=== PATIENT | male | born 1975 | race African-American/Black ===

== ENCOUNTER 2021-12-19 18:18 | Emergency (ER) | payer SELFPAY ==
[~2021-12-19] VITALS: Ht 167.6 cm; Wt 67.0 kg
[2021-12-19 18:44] LABS: BASOPHILS % (AUTO) 2.2 % (0.0-2.0); EOSINOPHILS % (AUTO) 2.9 % (1.0-6.0); HEMATOCRIT 37.6 % (41-53); HEMOGLOBIN 12.7 g/dL (13.5-17.5); LYMPHOCYTES # (AUTO) 2.6 K/uL (1.0-4.8); LYMPHOCYTES % (AUTO) 32.6 % (22.0-44.0); MEAN CORPUSCULAR HEMOGLOBIN 28.4 pg (26.0-34.0); MEAN CORPUSCULAR HGB CONC 33.7 G/dL (31.0-37.0); MEAN CORPUSCULAR VOLUME 84 fL (80-100); MONOCYTES # (AUTO) 0.6 K/uL (0.1-1.0); MONOCYTES % (AUTO) 7.5 % (2.0-9.0); NEUTROPHILS # (AUTO) 4.3 K/uL (1.8-7.7); NEUTROPHILS % (AUTO) 54.8 % (40.0-70.0); PLATELET COUNT (AUTO) 194 K/uL (150-450); RED BLOOD CELL COUNT(AUTO) 4.47 MIL/uL (4.50-5.90); RED CELL DISTRIBUTION WIDTH 22.1 % (11.5-14.5)
[2021-12-19] MEDS ORDERED: IOHEXOL 350 MG/ML 100 ML VIAL ONE (18:44)
[2021-12-19] MEDS ORDERED: SODIUM CHLORIDE 0.9% 100 ML ONE (18:44)
[2021-12-19] MEDS ORDERED: ALTEPLASE 6.1 MG in WATER FOR INJECTION,STERILE 6.1 ML IV ONE (18:54)
[2021-12-19] MEDS ORDERED: ALTEPLASE 54.5 MG in WATER FOR INJECTION,STERILE 54.5 ML IV ONE (18:54)
[2021-12-19 18:56] LABS: B-TYPE NATRIURETIC PEPTIDE < 5 pg/mL (0-100); INR 0.9 (0.9-1.1); PROTHROMBIN TIME 10.1 SEC (9.4-11.6)
[2021-12-19] MEDS ORDERED: ALTEPLASE PER STROKE PROTOCOL CLINICAL ONE (19:00)
[2021-12-19 19:22] LABS: ANION GAP 12 mmol/L (8-16); CALCIUM, TOTAL 9.3 mg/dL (8.8-10.5); CARBON DIOXIDE 25 mmol/L (22-29); CHLORIDE 104 mmol/L (98-107); CREATININE 0.99 mg/dL (0.60-1.30); GLUCOSE,RANDOM 97 mg/dL (70-110); POTASSIUM 3.6 mmol/L (3.5-5.1); SODIUM SERUM 141 mmol/L (136-145); UREA NITROGEN, BLOOD 11 mg/dL (7-18)
[2021-12-19 19:27] LABS: GLOMERULAR FILTR. RATE CALC > 60 mL/min (>60)
[2021-12-19 19:30] LABS: ALANINE AMINOTRANSFERASE 33 U/L (12-78); ALBUMIN 3.8 g/dL (3.4-5.0); ALKALINE PHOSPHATASE 54 U/L (46-116); ASPARTATE AMINOTRANSFERASE 9 U/L (15-37); BILIRUBIN,TOTAL 0.2 mg/dL (0.1-1.0); TOTAL PROTEIN, SERUM 7.3 g/dL (6.4-8.2)
[2021-12-19 19:30] LABS: COVID AG,FIA SOURCE NASOPHARYNGEAL
[2021-12-19] MEDS ORDERED: HYDROmorphone 2 MG/ML VIAL IVP ONE (20:15)
[2021-12-19 20:44] VITALS: BP 173/93
[2021-12-19] MEDS ORDERED: 0.9% SODIUM CHLORIDE 10 ML SYRINGE IVP PRN (21:15)
[2021-12-19] MEDS ORDERED: ACETAMINOPHEN 325 MG TABLET PO PRN (21:15)
[2021-12-19] MEDS ORDERED: ONDANSETRON HCL 4 MG/2 ML VIAL IVP PRN (21:15)
== END 2021-12-19 21:10 | disposition left against medical advice (07) ==
LOC: EMS 18:20
DX: I63.9 Cerebral infarction, unspecified (principal); R29.810 Facial weakness; Z88.5 Allergy status to narcotic agent; Z88.8 Allergy status to other drugs, medicaments and biological substances; Z20.822 Contact with and (suspected) exposure to COVID-19
CPT/HCPCS: 99291; 70496; 37195; 96374; 71045; 87426; 80053; 83880; 84484; 85025; 85610; 85730; 86850; 86900; 86901; 36415; 70498; 82948; 93005; 70450; G0480; J1170; Q9967; J7050; J2997